=== PATIENT | male | born 1950 | race Caucasian/White ===

== ENCOUNTER → 2022-12-14 16:19 | Outpatient (BNVA) | payer OTHER, SELFPAY | PROVIDERS: PCP Dermatology; Visit Provider Dermatology | DX: D46.9 Myelodysplastic syndrome, unspecified (principal); D63.8 Anemia in other chronic diseases classified elsewhere; D70.1 Agranulocytosis secondary to cancer chemotherapy; D75.81 Myelofibrosis; T45.1X5A Adverse effect of antineoplastic and immunosuppressive drugs, initial encounter | CPT/HCPCS: 80053; 83735; 83880; 85025; 87496 ==

== ENCOUNTER → 2022-12-28 15:44 | Outpatient (BNVA) | payer OTHER, SELFPAY | PROVIDERS: PCP Dermatology; Visit Provider Dermatology | DX: D46.9 Myelodysplastic syndrome, unspecified (principal); D63.8 Anemia in other chronic diseases classified elsewhere; D70.1 Agranulocytosis secondary to cancer chemotherapy; D75.81 Myelofibrosis; T45.1X5A Adverse effect of antineoplastic and immunosuppressive drugs, initial encounter | CPT/HCPCS: 80053; 83735; 85025; 87496 ==